=== PATIENT | female | born 1930 | race Caucasian/White ===

== ENCOUNTER → 2016-12-03 | Outpatient (CLI) | payer MEDICARE, OTHER ==
[2016-12-03 08:51] LABS: HEMATOCRIT 43.3 % (35.0-46.0); MEAN CELL VOLUME 92.6 FL (80.0-100.0); MEAN CORPUSCULAR HEMOGLOBIN 30.6 PG (27.0-34.0); PLATELET COUNT 176 TH/MM3 (150-450); RED BLOOD COUNT 4.68 MIL/MM3 (4.00-5.30); RED CELL DISTRIBUTION WIDTH 14.2 % (11.6-17.2); REVIEW FLAG FINAL
[2016-12-03 09:22] LABS: BLOOD, URINE NEG (NEG); GLUCOSE,URINE NEG (NEG); KETONE, URINE NEG (NEG); MUCUS URINE FEW /lpf (OCC); NITRITE,URINE NEG (NEG); SQUAMOUS EPITHELIAL CELL URINE 7 /hpf (0-5); URINE COLOR LIGHT-YELLOW (YELLW/STRAW)
[2016-12-03 09:26] LABS: BACTERIA, URINE FEW /hpf
[2016-12-03 09:27] LABS: COMMENT (UR) CULT NOT INDICATED; CULTURE IF INDICATED CULT NOT INDICATED
[2016-12-03 09:54] LABS: ALT (GPT) 15 U/L (10-53); ANION GAP 6 MEQ/L (5-15); AST (GOT) 16 U/L (15-37); BICARBONATE 28.8 MEQ/L (21.0-32.0); BLOOD UREA NITROGEN 18 MG/DL (7-18); CHLORIDE 104 MEQ/L (98-107); GLOMERULAR FILTRATION RATE 80 ML/MIN (>89); GLUCOSE,FASTING 90 MG/DL (74-99); SODIUM (NA) 139 MEQ/L (136-145)
[2016-12-03 10:05] LABS: ALKALINE PHOSPHATASE 61 U/L (45-117); HDL CHOLESTEROL 54.2 MG/DL (40.0-60.0); LDL CHOLESTEROL 134 MG/DL (0-99); TOTAL BILIRUBIN ADULT 0.7 MG/DL (0.2-1.0)
== END ==
LOC: ELAB 06:59
PROVIDERS: ATTEND Family Medicine
DX: I10 Essential (primary) hypertension (principal); L82.1 Other seborrheic keratosis
CPT/HCPCS: 36415; 80053; 80061; 81001; 84443; 85027